=== PATIENT | female | born 1995 | race Caucasian/White ===

== ENCOUNTER 2017-08-23 08:57 | Emergency (ER) | payer BC ==
[2017-08-23 09:05] VITALS: BP 117/64
--- NOTE | 2017-08-23 09:27 | UC ---
Throat Pain/Nasal Flavio HPI - HPI Summary HPI Summary: 22 female presents to [facility] with complaints of sore throat, loss of voice that began yesterday evening, suddenly. State patient felt a burning throat sensation. Patient states she felt much worse yesterday however does still have symptoms upon waking up this morning. Admits to some nasal congestion. Denies taking any medication. Also complaints of feeling fatigued and body aches. Denies fever/chills. No other PMHx. No other complaints. - History of Current Complaint Chief Complaint: UCRespiratory Stated Complaint: THROAT Time Seen by Provider: 08/23/17 09:22 Hx Obtained From: Patient Hx Last Menstrual Period: 07/29/17 Onset/Duration: Sudden Onset, Lasting Hours, Still Present - improved some Severity: Moderate Pain Intensity: 8 Pain Scale Used: 0-10 Numeric Cough: None - Allergies/Home Medications Allergies/Adverse Reactions: Allergies Allergy/AdvReac Type Severity Reaction Status Date / Time No Known Allergies Allergy Verified 08/23/17 09:05 Home Medications: Home Medications Oral Contraceptive 1 tab PO DAILY 08/23/17 [History] PMH/Surg Hx/FS Hx/Imm Hx - Additional Past Medical History Additional PMH: Denies PMHx, no asthma, diabetes or htn - Surgical History Surgical History: None - Family History Known Family History: Positive: None - Social History Alcohol Use: Occasionally Substance Use Type: None Smoking Status (MU): Never Smoked Tobacco Review of Systems Constitutional: Fatigue Skin: Negative ENT: Sore Throat, Nasal Discharge Respiratory: Negative Cardiovascular: Negative Gastrointestinal: Nausea Musculoskeletal: Myalgia All Other Systems Reviewed And Are Negative: Yes Physical Exam Triage Information Reviewed: Yes Appearance: Well-Appearing, No Pain Distress, Well-Nourished Vital Signs: Initial Vital Signs Temp 98.3 F 08/23/17 09:01 Pulse 63 08/23/17 09:01 Resp 16 08/23/17 09:01 BP 117/64 08/23/17 09:01 Pulse Ox 98 08/23/17 09:01 Vital Signs Reviewed: Yes Eyes: Positive: Conjunctiva Clear ENT: Positive: Hearing grossly normal, Pharyngeal erythema, TMs normal, Hoarse voice - dysphonia. Negative: Nasal congestion, TM bulging, Tonsillar swelling, Tonsillar exudate Neck: Positive: Supple, Nontender, No Lymphadenopathy Respiratory: Positive: Chest non-tender, Lungs clear, Normal breath sounds, No respiratory distress, No accessory muscle use. Negative: Crackles, Rhonchi, Wheezing Cardiovascular: Positive: RRR, No Murmur, Pulses Normal Abdomen Description: Positive: Nontender, Soft Bowel Sounds: Positive: Present Musculoskeletal: Positive: Strength Intact Neurological: Positive: Alert Skin Exam: Normal Throat Pain/Nasal Course/Dx - Course Course Of Treatment: rapid strep obtained and negative. appears to be suffering from laryngitis. will treat symptomatically. no concern of other etiology at this time. chloraseptic spray, rest voice, increase fluids, vitamins and salt water gargles. normal vitals, afebrile, non hypoxic. aware of worsening signs and symptoms to watch out for. follow up with pcp. - Differential Dx/Diagnosis Differential Diagnosis/HQI/PQRI: Laryngitis, Mononucleosis, Pharyngitis, Tonsillitis, URI Provider Diagnoses: laryngitis, pharyngitis Discharge - Discharge Plan Condition: Stable Disposition: HOME Patient Education Materials: Laryngitis (ED), Pharyngitis (ED) Referrals: Non Staff,Doctor [Primary Care Provider] - Additional Instructions: Drink plenty of fluids, avoid citric, acidic and spicy foods/drinks. Get plenty of rest. Recommend emergen-c, velma jones, zinc. Chloraseptic spray to help soothe sore throat feeling. Aleve/ibuprofen for body aches and inflammation. Salt water gargles. Follow up with PCP. Any new or worsening symptoms please seek medical attention as discussed.
== END 2017-08-23 10:09 | disposition home or self-care (01) ==
LOC: UCCORT 08:57
DX: J04.0 Acute laryngitis (principal); J02.9 Acute pharyngitis, unspecified
CPT/HCPCS: 87651; 99202; G0463